=== PATIENT | female | born 1975 | race Caucasian/White ===

== ENCOUNTER 2017-07-14 13:30 | Emergency (ER) ==
[2017-07-14 13:38] VITALS: BP 131/79; TEMP 98; BMI 24.8
--- NOTE | 2017-07-14 14:34 | ED.PDOC ---
General ED Provider: Dr. PAUL HOLLIDAY Chief Complaint: Cough Stated Complaint: Patient states she started having cough, sore throat and sinus drainage for 6 days. States she is exposed to secound hand smoking. Has been coughing productive of green sputum. Time Seen by Physician: 14:32 Mode of Arrival: Walk-In Information Source: Patient Nursing and Triage Documentation Reviewed and Agree: Yes Review of Systems - Review Of Systems Constitutional: Reports: No symptoms Eyes: Reports: No symptoms Ears, Nose, Mouth, Throat: Reports: Nose discharge (sinus tendeness ). Denies: Ear discharge, Nose pain Respiratory: Reports: Cough Cardiac: Reports: No symptoms GI: Reports: No symptoms : Reports: No symptoms Musculoskeletal: Reports: No symptoms Skin: Reports: No symptoms Neurological: Reports: Headache Endocrine: Reports: No symptoms Hematologic/Lymphatic: Reports: No symptoms All Other Systems: Reviewed and Negative Past Medical History - Past Medical History Previously Healthy: Yes Endocrine: Reports: DM 1 Cardiovascular: Reports: None Respiratory: Reports: None Hematological: Reports: None Gastrointestinal: Reports: None Genitourinary: Reports: None Neuro/Psych: Reports: None Musculoskeletal: Reports: None Cancer: Reports: None Last Menstrual Period: february - Surgical History General Surgical History: Reports: None - Family History Family History: Reports: None - Social History Smoking Status: Former smoker Hx Substance Use: No Alcohol Screening: None Physical Exam - Physical Exam Appearance: Ill-appearing, Well-nourished Ill-appearing: Mild Pain Distress: Moderate Eyes: JAYLEN, EOMI, Conjunctiva clear ENT: Ears normal, Oropharynx normal, Rhinorrhea Neck: Supple Respiratory: Airway patent, Breath sounds clear, Breath sounds equal, Respirations nonlabored Cardiovascular: RRR, Pulses normal, No rub, No murmur GI/: Soft, Nontender, No masses, Bowel sounds normal Psychiatric: Affect appropriate, Mood appropriate Critical Care Note - Critical Care Note Total Time (mins): 0 Course - Course Vital Signs: Temp Pulse Resp BP Pulse Ox 07/14/17 13:31 98 F 95 H 20 131/79 97 Departure - Departure Time of Disposition: 14:32 Disposition: HOME SELF-CARE Discharge Problem: Acute sinusitis Qualifiers: Sinusitis location: maxillary Recurrence: non-recurrent Qualified Code(s): J01.00 - Acute maxillary sinusitis, unspecified Instructions: Sinusitis (ED) Condition: Fair Pt referred to PMD for follow-up: Yes Additional Instructions: Avoid second hand smoking Follow up with PCP in 3 -5 days Take medications as prescribed Prescriptions: Azithromycin [Zithromax] 250 mg PO DIRECTED #6 tablet Benzonatate [Tessalon Perles] 100 mg PO TID PRN #25 capsule PRN Reason: Cold Symptons Methylprednisolone [Medrol Dosepak] 4 mg PO DIRECTED #1 pkg Allergies/Adverse Reactions: Allergies Sulfa (Sulfonamide Antibiotics) Adverse Reaction (Verified 07/14/17 13:40) lodine Adverse Reaction (Uncoded 07/14/17 13:40) Home Medications: Ambulatory Orders Azithromycin [Zithromax] 250 mg PO DIRECTED #6 tablet 07/14/17 Benzonatate [Tessalon Perles] 100 mg PO TID PRN #25 capsule 07/14/17 Insulin Aspart [Novolog] 100 unit SQ DIRECTED 07/14/17 Methylprednisolone [Medrol Dosepak] 4 mg PO DIRECTED #1 pkg 07/14/17 Disposition Discussed With: Patient
== END 2017-07-14 14:47 | disposition home or self-care (01) ==
LOC: ED 13:30
DX: J01.00 Acute maxillary sinusitis, unspecified (principal); X58.XXXA Exposure to other specified factors, initial encounter
CPT/HCPCS: 99282